=== PATIENT | male | born 1955 | race Caucasian/White ===

== ENCOUNTER 2016-10-21 15:08 | Inpatient (IN) | payer MEDICARE, MEDICAID ==
[~2016-10-21] VITALS: Ht 177.8 cm; Wt 84.4 kg
[2016-10-21] MEDS ORDERED: diphenhydrAMINE 50 MG/1 ML VIAL IM ONE (15:15)
[2016-10-21] MEDS ORDERED: LORAZEPAM 2 MG/1 ML VIAL IM ONE (15:15)
[2016-10-21] MEDS ORDERED: HALOPERIDOL LACTATE 5 MG/1 ML VIAL IM ONE (15:15)
[2016-10-21] MEDS ORDERED: diphenhydrAMINE 50 MG/1 ML VIAL ONE (15:23)
--- NOTE | 2016-10-21 15:23 | NUR ---
DR LEWIS AT THE BEDSIDE FOR EVAL AND EXAM.
[2016-10-21] MEDS ORDERED: LORAZEPAM 2 MG/1 ML VIAL ONE (15:24)
[2016-10-21] MEDS ORDERED: HALOPERIDOL LACTATE 5 MG/1 ML VIAL ONE (15:24)
[2016-10-21] MEDS ORDERED: CARV3.122 PO (15:31)
[2016-10-21] MEDS ORDERED: DIVA125T2 PO (15:31)
[2016-10-21] MEDS ORDERED: URSO300C12 PO (15:31)
[2016-10-21] MEDS ORDERED: DIVA250T4 PO (15:31)
[2016-10-21] MEDS ORDERED: CYAN10009 PO (15:31)
[2016-10-21] MEDS ORDERED: MULT1TAB11 PO (15:31)
[2016-10-21] MEDS ORDERED: LISI-607 PO (15:31)
[2016-10-21] MEDS ORDERED: ACET-2154 PO (15:31)
[2016-10-21] MEDS ORDERED: HYDR-3651 PO (15:31)
[2016-10-21] MEDS ORDERED: CITA20TA11 PO (15:31)
[2016-10-21] MEDS ORDERED: ASPI81TA31 PO (15:31)
[2016-10-21] MEDS ORDERED: ONDA4TAB8 PO (15:31)
[2016-10-21] MEDS ORDERED: OLAN5TAB30 PO (15:31)
[2016-10-21] MEDS ORDERED: GABA-534 PO (15:31)
[2016-10-21 15:42] LABS: BASOPHILS # (AUTO) 0.1 K/uL (0.0-0.2); BASOPHILS % (AUTO) 0.8 % (0.0-2.0); EOSINOPHILS # (AUTO) 0.1 K/uL (0.0-0.7); EOSINOPHILS % (AUTO) 0.9 % (0.0-7.0); HEMATOCRIT 40.3 % (40.0-50.0); HEMOGLOBIN 13.9 g/dL (14.0-18.0); LYMPHOCYTES # (AUTO) 1.5 K/uL (0.8-4.8); LYMPHOCYTES % (AUTO) 18.6 % (20.5-51.5); MEAN CORPUSCULAR HGB CONC 34 g/dL (32.0-37.0); MONOCYTES # (AUTO) 0.5 K/uL (0.1-1.30); MONOCYTES % (AUTO) 6.4 % (0.0-11.0); NEUTROPHILS # (AUTO) 6.1 K/uL (1.8-8.9); NEUTROPHILS % (AUTO) 73.3 % (38.5-71.5); PLATELET COUNT (AUTO) 279 K/uL (150-450); RED BLOOD CELL COUNT(AUTO) 4.33 MIL/uL (4.70-6.10); RED CELL DISTRIBUTION WIDTH 13.3 % (11.5-14.5); WHITE BLOOD COUNT (AUTO) 8.3 K/uL (4.0-11.2)
[2016-10-21 15:44] LABS: CALCIUM 8.6 mg/dL (8.5-10.1); CARBON DIOXIDE 31 mmol/L (21-32); CHLORIDE 100 mmol/L (98-107); CREATININE 0.8 mg/dL (0.6-1.3); GFR 98 mL/min (>60); GLUCOSE 107 mg/dL (74-106); POTASSIUM 4.3 mmol/L (3.5-5.1); SODIUM SERUM 136 mmol/L (136-145); UREA NITROGEN, BLOOD 19 mg/dL (7-18)
[2016-10-21 15:48] LABS: ETHANOL < 3 MG/DL (0-0)
[2016-10-21 15:50] LABS: ALANINE AMINOTRANSFERASE 15 U/L (16-63); ALBUMIN 3.3 g/dL (3.4-5.0); ALKALINE PHOSPHATASE 70 U/L (50-136); ASPARTATE AMINOTRANSFERASE 21 U/L (15-37); BILIRUBIN,DIRECT 0.1 mg/dL (0.0-0.2); BILIRUBIN,TOTAL 0.7 mg/dL (0.2-1.0); TOTAL PROTEIN, SERUM 7.1 g/dL (6.4-8.2)
[2016-10-21 15:51] LABS: ACETAMINOPHEN < 2.0 ug/mL (10-30)
[2016-10-21] MEDS ORDERED: OLANZAPINE 10 MG VIAL IM ONE ×2 (15:59→16:00)
--- NOTE | 2016-10-21 16:00 | NUR ---
PT IS MEDICALLY CLEARED BY DR LEWIS. PT NOT COOPERATIVE W/ CARE, UNABLE TO COLLECT URINE, AWARE.
[2016-10-21 16:45] VITALS: BP 120/56
[2016-10-21] MEDS ORDERED: MAGNESIUM HYDROXIDE 30 ML LIQUID UDC PO PRN (17:00)
[2016-10-21] MEDS ORDERED: MAG HYDROX/AL HYDROX/SIMETH 30 ML LIQUID UDC PO PRN (17:00)
--- NOTE | 2016-10-21 18:41 | NUR ---
received patient from ER on 5150 for DTO due to aggressive and agitated behavior .
[2016-10-21 20:00] VITALS: BP 90/45
[2016-10-21] MEDS ORDERED: HYDROCODONE/APAP 5-325MG TABLET PO PRN (20:30)
[2016-10-22] MEDS: LORAZEPAM 1 MG TABLET PO PRN ×2 (00:02→13:59)
--- NOTE | 2016-10-22 00:03 | NUR ---
GPS: PATIENT IS VERY RESTLESS,GETTING OUT OF BED.BANGING ON THE BED SIDE TABLE. ATIVAN 1 MG PO GIVEN FOR AGITATION.
--- NOTE | 2016-10-22 01:03 | NUR ---
GPS: PATIENT IS CALM NOW. PRN EFFECTIVE FOR AGITATION.
--- NOTE | 2016-10-22 06:47 | NUR ---
GPS: REMAIN CALM AND COOPERATIVE.ASSISTED TO USE BATHROOM THEN BACK TO BED. SLEPT 6:30HRS THROUGH THE NIGHT. CONTINUE PLAN OF CARE. Addendum: 10/22/16 at 0649 by CHUY BHATIA LVN WRONG PATIENT CHARTING.
--- NOTE | 2016-10-22 06:49 | NUR ---
GPS: REMAIN UNCOOPERATIVE WITH CARE. ATIVAN GIVEN X1 FOR AGITATION. SLEPT 5 HRS THROUGH THE NIGHT. CONTINUE ON 1:1 SITTER @ BEDSIDE FOR SAFETY. CONTINUE PLAN OF CARE.
[2016-10-22] MEDS ORDERED: [UNRECOGNIZED DRUG - OTHER] PO SCH (09:00)
[2016-10-22] MEDS ORDERED: LISINOPRIL 5 MG TABLET PO SCH (09:00)
[2016-10-22] MEDS ORDERED: MULTIVITAMINS W MINERALS PO SCH (09:00)
[2016-10-22] MEDS: MULTIVIT, IRON, MIN NO. 8, FA TABLET PO SCH (10:07)
[2016-10-22] MEDS: URSODIOL 300 MG CAPSULE PO SCH ×2 (10:07→17:17)
[2016-10-22] MEDS: ASPIRIN 81 MG TAB.CHEW PO SCH (10:07)
[2016-10-22] MEDS: CYANOCOBALAMIN 1,000 MCG TABLET PO SCH (10:07)
[2016-10-22] MEDS: CARVEDILOL 3.125 MG TABLET PO SCH ×2 (10:09→17:16)
[2016-10-22] MEDS: LISINOPRIL 5 MG TABLET PO SCH (10:10)
[2016-10-22] MEDS: THIAMINE HCL 100 MG TABLET PO SCH (11:59)
[2016-10-22] MEDS: OLANZAPINE ZYDIS 5 MG TAB.RAPDIS PO SCH ×2 (11:59→17:15)
[2016-10-22] MEDS: GABAPENTIN 300 MG CAPSULE PO SCH ×2 (13:55→17:15)
[2016-10-22 16:00] VITALS: BP 100/64
[2016-10-22 20:00] VITALS: BP 102/59
[2016-10-22] MEDS: TEMAZEPAM 7.5 MG CAPSULE PO PRN (20:47)
[2016-10-22] MEDS: DIVALPROEX SPRINKLE 125 MG CAP.SPRINK PO SCH (20:47)
[2016-10-23 07:30] VITALS: BP 126/83
[2016-10-23] MEDS: CARVEDILOL 3.125 MG TABLET PO SCH ×2 (08:34→18:00)
[2016-10-23] MEDS: DIVALPROEX SPRINKLE 125 MG CAP.SPRINK PO SCH ×2 (08:36→20:28)
[2016-10-23] MEDS: CYANOCOBALAMIN 1,000 MCG TABLET PO SCH (08:36)
[2016-10-23] MEDS: URSODIOL 300 MG CAPSULE PO SCH ×2 (08:36→17:00)
[2016-10-23] MEDS: GABAPENTIN 300 MG CAPSULE PO SCH ×3 (08:36→17:00)
[2016-10-23] MEDS: THIAMINE HCL 100 MG TABLET PO SCH (08:37)
[2016-10-23] MEDS: ASPIRIN 81 MG TAB.CHEW PO SCH (08:37)
[2016-10-23] MEDS: OLANZAPINE ZYDIS 5 MG TAB.RAPDIS PO SCH ×3 (08:37→17:00)
[2016-10-23] MEDS: LISINOPRIL 5 MG TABLET PO SCH (08:37)
[2016-10-23] MEDS: MULTIVIT, IRON, MIN NO. 8, FA TABLET PO SCH (08:45)
--- NOTE | 2016-10-23 11:47 | NUR ---
Initial discharge instructions:Pt resides at [facility] [[address], [place]].Per pt's sister and brother,both would like the pt to return back to the SNF when stable.Spoke with Andrey at the facility who stated the pt may return back when stable.SW will speak with family and MD regarding appropriate discharge plans.SW will form a safe and proper discharge.
[2016-10-23] MEDS: LORAZEPAM 1 MG TABLET PO PRN (12:22)
[2016-10-23 15:00] VITALS: BP 97/34
--- NOTE | 2016-10-23 16:21 | NUR ---
Pt lying in bed, sedated at this time. Noted BP 44/27. Pt on Trendelenburg positioning at this time. 1:1 sitter and RN at bedside. Called rapid response.
--- NOTE | 2016-10-23 16:49 | NUR ---
1625 Rapid response responded , patient arousable ,moving in bed back forth, unable to stay still, it takes time to check his blood pressure. 1635 able to take his b/P on his right lower extremity with reading: B/P 97/34 P-76 resp. 18, O2 Sat 96% . Will continue to monitor behavior and vital signs. With 1:1 sitter for safety.
--- NOTE | 2016-10-23 16:50 | NUR ---
Rapid Response notes: Rapid response was called to assess patient due to low Blood pressure.Pt remains asleep,arousable.Moves all extremities. Skin warm,dry to touch.All pulses are strong,palpable.Respiration even,unlabored.On room air,saturation 99%.No s/s of distress noted.B/P 95/46 on Right Lower leg.Unable to check B/P on BUE due to pt constant movement.Report given to primary RN.Rapid response will be available as needed.
--- NOTE | 2016-10-23 17:03 | NUR ---
Paged Dr. Phillips to report hypotension or to obtain any orders, awaiting call back.
--- NOTE | 2016-10-23 18:13 | NUR ---
all medications due at 1700 including coreg @ 1800 held due to patient is lethargic and low B/P.
[2016-10-23 20:07] VITALS: BP 95/61
[2016-10-23] MEDS: ATORVASTATIN 20 MG TABLET PO SCH (22:12)
[2016-10-23] MEDS: TEMAZEPAM 7.5 MG CAPSULE PO PRN (22:13)
[2016-10-23] MEDS ORDERED: ATORVASTATIN 20 MG TABLET ONE (22:20)
[2016-10-24] MEDS: LORAZEPAM 1 MG TABLET PO PRN ×3 (02:35→21:14)
[2016-10-24 07:30] VITALS: BP 112/71
[2016-10-24] MEDS: CARVEDILOL 3.125 MG TABLET PO SCH ×2 (08:00→17:40)
[2016-10-24] MEDS: DIVALPROEX SPRINKLE 125 MG CAP.SPRINK PO SCH ×2 (08:13→21:04)
[2016-10-24] MEDS: OLANZAPINE ZYDIS 5 MG TAB.RAPDIS PO SCH ×3 (08:13→17:39)
[2016-10-24] MEDS: URSODIOL 300 MG CAPSULE PO SCH ×2 (08:13→17:40)
[2016-10-24] MEDS: CYANOCOBALAMIN 1,000 MCG TABLET PO SCH (08:13)
[2016-10-24] MEDS: MULTIVIT, IRON, MIN NO. 8, FA TABLET PO SCH (08:13)
[2016-10-24] MEDS: THIAMINE HCL 100 MG TABLET PO SCH (08:14)
[2016-10-24] MEDS: ASPIRIN 81 MG TAB.CHEW PO SCH (08:14)
[2016-10-24] MEDS: GABAPENTIN 300 MG CAPSULE PO SCH ×3 (08:14→17:39)
[2016-10-24] MEDS: LISINOPRIL 5 MG TABLET PO SCH (08:34)
[2016-10-24] MEDS: CLOTRIMAZOLE/BETAMET DIPROP CREAM 15 GM TUBE TOP SCH ×2 (15:02→21:03)
[2016-10-24 16:00] VITALS: BP 109/65
[2016-10-24 20:00] VITALS: BP 116/75
[2016-10-24] MEDS: ATORVASTATIN 20 MG TABLET PO SCH (21:04)
[2016-10-25 06:27] LABS: HEMATOCRIT 40.2 % (40.0-50.0); HEMOGLOBIN 13.3 g/dL (14.0-18.0); MEAN CORPUSCULAR HEMOGLOBIN 31.1 uug (27.0-31.0); MEAN CORPUSCULAR HGB CONC 33 g/dL (32.0-37.0); PLATELET COUNT (AUTO) 245 K/uL (150-450); RED BLOOD CELL COUNT(AUTO) 4.28 MIL/uL (4.70-6.10); WHITE BLOOD COUNT (AUTO) 6.7 K/uL (4.0-11.2)
[2016-10-25 06:37] LABS: BILIRUBIN,TOTAL 1.1 mg/dL (0.2-1.0); CREATININE 0.8 mg/dL (0.6-1.3); MAGNESIUM 1.9 mg/dL (1.8-2.4); PHOSPHOROUS 4.1 mg/dL (2.5-4.9); POTASSIUM 4.3 mmol/L (3.5-5.1); TOTAL PROTEIN, SERUM 6.6 g/dL (6.4-8.2)
[2016-10-25 07:30] VITALS: BP 102/56
[2016-10-25 07:30] LABS: THYROID STIMULATING HORMONE 3.666 mIU/mL (0.358-3.740)
[2016-10-25] MEDS: CARVEDILOL 3.125 MG TABLET PO SCH ×2 (08:00→17:25)
[2016-10-25] MEDS: ACETAMINOPHEN 325 MG TABLET PO PRN (08:21)
[2016-10-25] MEDS: DIVALPROEX SPRINKLE 125 MG CAP.SPRINK PO SCH ×2 (08:22→20:23)
[2016-10-25] MEDS: GABAPENTIN 300 MG CAPSULE PO SCH ×3 (08:22→17:24)
[2016-10-25] MEDS: CYANOCOBALAMIN 1,000 MCG TABLET PO SCH (08:22)
[2016-10-25] MEDS: ASPIRIN 81 MG TAB.CHEW PO SCH (08:23)
[2016-10-25] MEDS: OLANZAPINE ZYDIS 5 MG TAB.RAPDIS PO SCH ×2 (08:23→17:26)
[2016-10-25] MEDS: URSODIOL 300 MG CAPSULE PO SCH ×2 (08:23→17:25)
[2016-10-25] MEDS: THIAMINE HCL 100 MG TABLET PO SCH (08:23)
[2016-10-25] MEDS: MULTIVIT, IRON, MIN NO. 8, FA TABLET PO SCH (08:23)
[2016-10-25] MEDS: LISINOPRIL 5 MG TABLET PO SCH (08:28)
[2016-10-25] MEDS: CLOTRIMAZOLE/BETAMET DIPROP CREAM 15 GM TUBE TOP SCH ×2 (09:00→20:26)
[2016-10-25 12:09] LABS: BASOPHILS % (AUTO) 0.7 % (0.0-2.0); EOSINOPHILS % (AUTO) 4.9 % (0.0-7.0); LYMPHOCYTES % (AUTO) 32.5 % (20.5-51.5); NEUTROPHILS % (AUTO) 52.9 % (38.5-71.5)
[2016-10-25 17:19] VITALS: BP 110/57
[2016-10-25] MEDS: ATORVASTATIN 20 MG TABLET PO SCH (20:23)
[2016-10-25] MEDS: Z GUARD REMEDY PASTE 57 GM TUBE TOP SCH (20:26)
--- NOTE | 2016-10-25 21:03 | NUR ---
PATIENT RECEIVED IN ROOM AWAKE,PATIENT ALERT/ORIENTED X1 TO NAME ONLY. PATIENT REMAINS CONFUSED/DISORIENTED/DISORGANIZED. PATIENT IS EASILY AGITATED AND EASILY IRRITABLE, REQUIRES CONSTANT REDIRECTION. PATIENT REMAINS WITH A 1:1 SITTER FOR SAFETY, PATIENT HAS POOR INSIGHT, AND POOR JUDGEMENT. CONTINUE WITH CURRENT TREATMENT PLAN. PATIENT COMPLAINT WITH HS MEDICATION. BED IN LOWEST POSITION, BED LOCKED, AND BED ALARM ON WHILE IN BED.
[2016-10-25] MEDS: TEMAZEPAM 7.5 MG CAPSULE PO PRN (22:20)
[2016-10-25 22:31] VITALS: BP 110/67
[2016-10-26 08:00] VITALS: BP 99/55
[2016-10-26] MEDS: CARVEDILOL 3.125 MG TABLET PO SCH ×2 (08:00→17:58)
[2016-10-26] MEDS: CYANOCOBALAMIN 1,000 MCG TABLET PO SCH (08:16)
[2016-10-26] MEDS: ASPIRIN 81 MG TAB.CHEW PO SCH (08:17)
[2016-10-26] MEDS: MULTIVIT, IRON, MIN NO. 8, FA TABLET PO SCH (08:17)
[2016-10-26] MEDS: URSODIOL 300 MG CAPSULE PO SCH ×2 (08:17→16:17)
[2016-10-26] MEDS: ACETAMINOPHEN 325 MG TABLET PO PRN (08:17)
[2016-10-26] MEDS: DIVALPROEX SPRINKLE 125 MG CAP.SPRINK PO SCH ×2 (08:17→21:41)
[2016-10-26] MEDS: GABAPENTIN 300 MG CAPSULE PO SCH ×3 (08:17→16:17)
[2016-10-26] MEDS: THIAMINE HCL 100 MG TABLET PO SCH (08:18)
[2016-10-26] MEDS: OLANZAPINE ZYDIS 5 MG TAB.RAPDIS PO SCH (08:18)
[2016-10-26] MEDS: LISINOPRIL 5 MG TABLET PO SCH (08:18)
[2016-10-26] MEDS: Z GUARD REMEDY PASTE 57 GM TUBE TOP SCH ×2 (08:19→20:36)
[2016-10-26] MEDS: CLOTRIMAZOLE/BETAMET DIPROP CREAM 15 GM TUBE TOP SCH ×2 (09:00→20:37)
[2016-10-26] MEDS ORDERED: OLANZAPINE ZYDIS 5 MG TAB.RAPDIS PO SCH (12:00)
[2016-10-26] MEDS ORDERED: DIVALPROEX SPRINKLE 125 MG CAP.SPRINK PO SCH (12:00)
[2016-10-26 16:39] VITALS: BP 95/54
[2016-10-26] MEDS ORDERED: OLANZAPINE ZYDIS 5 MG TAB.RAPDIS PO ONE (21:00)
[2016-10-26] MEDS: ATORVASTATIN 20 MG TABLET PO SCH (21:40)
[2016-10-26 21:45] VITALS: BP 124/72
--- NOTE | 2016-10-26 22:22 | NUR ---
PATIENT RECEIVED IN ROOM AWAKE,PATIENT ALERT/ORIENTED X1 TO NAME ONLY. PATIENT REMAINS CONFUSED/DISORIENTED/DISORGANIZED. PATIENT IS EASILY AGITATED AND EASILY IRRITABLE, REQUIRES CONSTANT REDIRECTION. PATIENT MOVES FROM SIDE TO SIDE IN BED, SITTING UP AND LYING DOWN. PATIENT REMAINS WITH A 1:1 SITTER FOR SAFETY, PATIENT HAS POOR INSIGHT, AND POOR JUDGEMENT. CONTINUE WITH CURRENT TREATMENT PLAN. PATIENT COMPLAINT WITH HS MEDICATION. BED IN LOWEST POSITION, BED LOCKED, AND BED ALARM ON WHILE IN BED.
[2016-10-27 07:30] VITALS: BP 93/84
[2016-10-27] MEDS: CARVEDILOL 3.125 MG TABLET PO SCH (08:00)
[2016-10-27] MEDS: THIAMINE HCL 100 MG TABLET PO SCH (09:21)
[2016-10-27] MEDS: ACETAMINOPHEN 325 MG TABLET PO PRN (09:22)
[2016-10-27] MEDS: GABAPENTIN 300 MG CAPSULE PO SCH ×2 (09:22→13:00)
[2016-10-27] MEDS: MULTIVIT, IRON, MIN NO. 8, FA TABLET PO SCH (09:22)
[2016-10-27] MEDS: CYANOCOBALAMIN 1,000 MCG TABLET PO SCH (09:22)
[2016-10-27] MEDS: DIVALPROEX SPRINKLE 125 MG CAP.SPRINK PO SCH ×2 (09:22→20:41)
[2016-10-27] MEDS: OLANZAPINE ZYDIS 5 MG TAB.RAPDIS PO SCH (09:23)
[2016-10-27] MEDS: URSODIOL 300 MG CAPSULE PO SCH ×2 (09:23→16:43)
[2016-10-27] MEDS: ASPIRIN 81 MG TAB.CHEW PO SCH (09:23)
[2016-10-27] MEDS: Z GUARD REMEDY PASTE 57 GM TUBE TOP SCH ×2 (09:24→20:41)
[2016-10-27] MEDS: CLOTRIMAZOLE/BETAMET DIPROP CREAM 15 GM TUBE TOP SCH ×2 (09:25→20:41)
[2016-10-27 15:53] LABS: *BLOOD, URINE NEGATIVE (NEGATIVE); *CLARITY,URINE CLEAR (CLEAR); *COLOR,URINE YELLOW (YELLOW); *KETONES,URINE 2+ (NEGATIVE); *PROTEIN,URINE 1+ (NEGATIVE); LEUKOCYTE ESTERASE ,URINE NEGATIVE (NEGATIVE); NITRITE, URINE NEGATIVE (NEGATIVE); PH,URINE 5.5 (5.0-8.0); UGLUCOSE NEGATIVE (NEGATIVE)
[2016-10-27 15:57] LABS: *BILIRUBIN,URIN 1+ (NEGATIVE)
[2016-10-27 16:02] LABS: MUCUS,URINE MODERATE /LPF (0-FEW); WBC,URINE 0-3 /HPF (0-3)
[2016-10-27 16:45] VITALS: BP 134/66
[2016-10-27] MEDS ORDERED: OLANZAPINE ZYDIS 5 MG TAB.RAPDIS PO SCH (20:00)
[2016-10-27 20:39] VITALS: BP 127/86
[2016-10-27] MEDS: ATORVASTATIN 20 MG TABLET PO SCH (20:40)
[2016-10-27] MEDS: TEMAZEPAM 7.5 MG CAPSULE PO PRN (23:45)
--- NOTE | 2016-10-27 23:49 | NUR ---
GPS: Pt.still awake at this time but less restless. No facial grimacing of pain observed. Cleansed after each episodes of incontinence. Repositioned for comfort. Side rails padded for safety. Restoril 7.5mg given PO for insomnia. Will monitor effectiveness of med. Quiet environment provided to facilitate sleep. Bed alarm on for safety.
[2016-10-28 07:30] VITALS: BP 104/54
[2016-10-28] MEDS: ASPIRIN 81 MG TAB.CHEW PO SCH (09:07)
[2016-10-28] MEDS: MULTIVIT, IRON, MIN NO. 8, FA TABLET PO SCH (09:07)
[2016-10-28] MEDS: THIAMINE HCL 100 MG TABLET PO SCH (09:07)
[2016-10-28] MEDS: DIVALPROEX SPRINKLE 125 MG CAP.SPRINK PO SCH ×2 (09:07→12:30)
[2016-10-28] MEDS: CYANOCOBALAMIN 1,000 MCG TABLET PO SCH (09:07)
[2016-10-28] MEDS: URSODIOL 300 MG CAPSULE PO SCH ×2 (09:07→17:31)
[2016-10-28] MEDS: OLANZAPINE ZYDIS 5 MG TAB.RAPDIS PO SCH ×2 (09:09→12:30)
[2016-10-28] MEDS: Z GUARD REMEDY PASTE 57 GM TUBE TOP SCH ×2 (09:09→20:22)
[2016-10-28] MEDS: CLOTRIMAZOLE/BETAMET DIPROP CREAM 15 GM TUBE TOP SCH ×2 (09:10→20:22)
[2016-10-28] MEDS: ACETAMINOPHEN 325 MG TABLET PO PRN (09:50)
--- NOTE | 2016-10-28 09:54 | NUR ---
GPS: Nursing Notes: Thought disorder: Awake and responding to his name, impaired judgment, confused, disoriented, poor impulse control, resistant with nursing care, constantly laying down on his elbows and knees while in bed, restless, rubbing his elbows and knees against the mattress, unable to be redirected, incontinent of urine, assisted, with ADL's, unable to formulate a plan for self care, continue with treatment plan.
--- NOTE | 2016-10-28 11:23 | NUR ---
WEEKLY MEETING PO INTAKE 0-50%, RECOMMEND TO ADD BOOST BID IF PO REMAINS POOR NOTED 34# WEIGHT LOSS IN 5 DAYS, MOST LIKELY MEASUREMENT ERROR, REC TO RECHECK WT BM PRESENT, SKIN INTACT NOTED ELEVATED CHOLESTEROL AND LDL LABS, IF REMAIN ELEVATED REC FISH OIL NUTRITION DIAGNOSIS: POOR PO INTAKE RELATED TO MENTAL STATUS EVIDENCED BY PO INTAKE 0-50% MONITOR PO INTAKE, WT, LABS Addendum: 10/28/16 at [address] Amended: Links added.
[2016-10-28 16:00] VITALS: BP 95/65
[2016-10-28] MEDS ORDERED: OLANZAPINE ZYDIS 5 MG TAB.RAPDIS PO SCH ×2 (20:00)
[2016-10-28] MEDS: ATORVASTATIN 20 MG TABLET PO SCH (20:21)
[2016-10-28] MEDS ORDERED: DIVALPROEX SPRINKLE 125 MG CAP.SPRINK PO SCH (21:00)
[2016-10-28] MEDS: TEMAZEPAM 7.5 MG CAPSULE PO PRN (22:31)
[2016-10-29 07:30] VITALS: BP 170/88
--- NOTE | 2016-10-29 07:55 | NUR ---
REFUSED AM LABS
[2016-10-29] MEDS: MULTIVIT, IRON, MIN NO. 8, FA TABLET PO SCH (08:04)
[2016-10-29] MEDS: ASPIRIN 81 MG TAB.CHEW PO SCH (08:04)
[2016-10-29] MEDS: THIAMINE HCL 100 MG TABLET PO SCH (08:04)
[2016-10-29] MEDS: CYANOCOBALAMIN 1,000 MCG TABLET PO SCH (08:04)
[2016-10-29] MEDS: DIVALPROEX SPRINKLE 125 MG CAP.SPRINK PO SCH ×2 (08:10→12:31)
[2016-10-29] MEDS: OLANZAPINE ZYDIS 5 MG TAB.RAPDIS PO SCH ×2 (08:13→12:31)
[2016-10-29] MEDS: Z GUARD REMEDY PASTE 57 GM TUBE TOP SCH (10:05)
[2016-10-29] MEDS: CLOTRIMAZOLE/BETAMET DIPROP CREAM 15 GM TUBE TOP SCH (10:05)
--- NOTE | 2016-10-29 10:07 | NUR ---
DC Note: The Patient will be discharged today back to [facility] [[address] [place] [address]; ] via ambulance at 12:00 pm. Please schedule an ambulance for the patient. Spoke with Andrey at the facility who stated he would accept the patient today. Spoke with patient's sister, Twila [phone] who is aware and agreeable with discharge plans. Patient is aware and agreeable with discharge plans. Patient will follow-up with (Psychiatrist) and ([employer]ground [employer] Superintendent) at the facility.
[2016-10-29] MEDS: URSODIOL 300 MG CAPSULE PO SCH (12:31)
--- NOTE | 2016-10-29 15:03 | NUR ---
1100 Patient will be discharge back to [facility] today via ambulance. 1120 Called report to the nurse who is admitting the patient , spoke to Ms. Zander RN , informed that patient will be discharge back to the facility by 1430 this afternoon. Also, informed patient mentally and medically stable, denies suicidal ideation/ denies homicidal thoughts. No av hallucinations/ no delusions noted . V/s stable. 1450 Picked up by ambulance in stable condition and transfer to the facilty
== END 2016-10-29 14:50 | DRG 885 ==
LOC: ER 15:08 → GPS 16:28
PROVIDERS: ADMIT Psychiatry & Neurology Psychosomatic Medicine; ATTEND Internal Medicine
DX: F29 Unspecified psychosis not due to a substance or known physiological condition (principal); F32.9 Major depressive disorder, single episode, unspecified; F10.21 Alcohol dependence, in remission; F03.90 Unspecified dementia, unspecified severity, without behavioral disturbance, psychotic disturbance, mood disturbance, and anxiety; I10 Essential (primary) hypertension; E53.8 Deficiency of other specified B group vitamins; D53.9 Nutritional anemia, unspecified; E66.9 Obesity, unspecified; E88.09 Other disorders of plasma-protein metabolism, not elsewhere classified; R21 Rash and other nonspecific skin eruption; Z68.26 Body mass index [BMI] 26.0-26.9, adult; R73.9 Hyperglycemia, unspecified; E80.6 Other disorders of bilirubin metabolism; R78.9 Finding of unspecified substance, not normally found in blood; I25.10 Atherosclerotic heart disease of native coronary artery without angina pectoris
CPT/HCPCS: 36415; 70450; 80164; 82747; 83735; 84100; 84443; 85014; 85025; 87086; 97001; 97116; 97530; A4663; C1758; G0480-TC; G6040-TC; J1200; J1630; J2060; J2358